=== PATIENT | male | born 1950 | race Caucasian/White ===

== ENCOUNTER 2023-11-15 07:05 | Emergency (ER) | payer MEDICARE | END 2023-11-15 09:12 | disposition home or self-care (01) | LOC: NAV ERS 07:05 | DX: R33.9 Retention of urine, unspecified (principal); I10 Essential (primary) hypertension; E03.9 Hypothyroidism, unspecified; Z87.891 Personal history of nicotine dependence; Z79.899 Other long term (current) drug therapy; Z79.82 Long term (current) use of aspirin | CPT/HCPCS: 51702; 51798; 99283 ==